=== PATIENT | female | born 1995 | race Caucasian/White ===

== ENCOUNTER 2022-05-15 11:27 | Inpatient (IN) | payer MEDICAID, OTHER ==
[2022-05-15] MEDS ORDERED: Acetaminophen 500 MG TAB PO PRN (18:40)
[2022-05-15] MEDS ORDERED: Promethazine HCl 25 MG/ML VIAL IM PRN (18:40)
[2022-05-15] MEDS ORDERED: Docusate 100 MG CAP PO PRN (18:40)
[2022-05-15] MEDS ORDERED: Zolpidem Tartrate 5 MG TAB PO PRN (18:40)
[2022-05-15] MEDS ORDERED: Misoprostol 200 MCG TAB PR PRN (18:40)
[2022-05-15] MEDS ORDERED: hydrALAZINE 20 MG/ML VIAL SLOW IVP PRN (18:40)
[2022-05-15] MEDS ORDERED: Misoprostol 100 MCG TAB VAG SCH (18:40)
[2022-05-15] MEDS ORDERED: Ibuprofen 800 MG TAB PO PRN (18:40)
[2022-05-15] MEDS ORDERED: Butorphanol Tartrate 1 MG/ML VIAL SLOW IVP PRN (18:40)
[2022-05-15] MEDS ORDERED: Lactated Ringer's 1,000 ML IV SCH (18:40)
[2022-05-15] MEDS ORDERED: HYDROcodone/Acetaminophen 5/325 mg Tablet PO PRN ×2 (18:40)
[2022-05-15] MEDS ORDERED: Lidocaine 1% (PF) 30 ML VIAL SC PRN (18:40)
[2022-05-15] MEDS ORDERED: NS w/ Oxytocin 30 units 500 ML IV SCH ×2 (18:40)
[2022-05-15] MEDS ORDERED: Diphenoxylate HCl/Atropine Tablet PO PRN ×2 (18:40)
[2022-05-15 18:41] VITALS: BMI 26.6
[2022-05-15 19:39] LABS: Hemoglobin 11.1 g/dL (12.0-15.5); Mean Corpuscular HGB CONC 35.1 g/dL (32.0-36.0); Mean Corpuscular Hemoglobin 30.8 pg (27.0-33.0); Mean Corpuscular Volume 87.8 fl (81.6-98.3); Mean Platelet Volume 12.2 fl (7.4-10.4); Platelet Count 209 10x3/uL (150-450); RBC Distribution Width 12.4 % (11.5-14.5); White Blood Cell (WBC) Count 11.2 10x3/uL (3.5-10.5)
[2022-05-15 20:12] LABS: HBSAg Index 0.25 S/CO (0-0.99); Hep B Surf Ag Non-Reactive S/CO (NonReactive); Syphilis Antibody Nonreactive (Nonreactive); Syphilis Antibody Index 0.04 S/CO (<1.00 Non-Reactive)
[2022-05-15 20:21] LABS: HIV (1/2) Antibody/Antigen Non-Reactive (NonReactive); HIV 1/2 INDEX 0.07 S/CO (<1.00)
[2022-05-15] MEDS: Ondansetron PF 4 MG/2 ML Vial IVP PRN (22:30)
[2022-05-15] MEDS ORDERED: Magnesium Sulfate 20 gm/500 ml 20 GM/500 ML BAG ONE (23:25)
[2022-05-16] MEDS: Ondansetron PF 4 MG/2 ML Vial IVP PRN ×3 (08:02→18:40)
[2022-05-16] MEDS ORDERED: Fentanyl 2 mcg/Bup 0.1% Cadd 100 ML ONE (09:57)
[2022-05-16] MEDS ORDERED: Promethazine HCl 25 MG/ML VIAL IM PRN (10:28)
[2022-05-16] MEDS ORDERED: diphenhydrAMINE 50 MG/ML VIAL IVP PRN (10:28)
[2022-05-16] MEDS ORDERED: ePHEDrine Sulfate 50 MG/10 ML VIAL SLOW IVP PRN (10:28)
[2022-05-16] MEDS ORDERED: Acetaminophen 325 MG TAB PO PRN (10:28)
[2022-05-16] MEDS ORDERED: Ondansetron PF 4 MG/2 ML Vial IVP PRN (10:28)
[2022-05-16] MEDS ORDERED: Naloxone HCl 0.4 mg/ml Vial IVP PRN ×2 (10:28)
[2022-05-16] MEDS ORDERED: Moisturizing Cream (Eucerin) 113 GM JAR TOP PRN (10:28)
[2022-05-16] MEDS ORDERED: Lactated Ringer's 500 ML IV PRN (10:28)
[2022-05-16] MEDS ORDERED: Communication Order-Pharmacy FS SCH (10:30)
[2022-05-16] MEDS ORDERED: Fentanyl 2 mcg/Bupivacaine 0.1% Cassette 100 ML EPIDURAL SCH (10:30)
[2022-05-16] MEDS ORDERED: Misoprostol 200 MCG TAB VAG PRN (10:41)
[2022-05-16] MEDS ORDERED: Boostrix 0.5 ML (Tdap) VIAL (>/=7 yrs of age) IM ONE (10:41)
[2022-05-16] MEDS ORDERED: Lanolin Ointment 7 GM TUBE TOP PRN (10:41)
[2022-05-16] MEDS ORDERED: Milk Of Magnesia 30 ML UDCUP PO PRN (10:41)
[2022-05-16] MEDS ORDERED: Preparation H Ointment 28 GM TUBE PR PRN (10:41)
[2022-05-16] MEDS ORDERED: Benzocaine-Menthol 82.5 ML CAN TOP PRN (10:41)
[2022-05-16] MEDS ORDERED: diphenhydrAMINE 25 MG CAP PO PRN (10:41)
[2022-05-16] MEDS ORDERED: Bisacodyl 10 MG SUPP PR PRN (10:41)
[2022-05-16] MEDS ORDERED: hydrALAZINE 20 MG/ML VIAL SLOW IVP PRN (10:41)
[2022-05-16] MEDS ORDERED: Witch Hazel-Glycerin 1 EACH JAR TOP PRN (10:42)
[2022-05-16] MEDS ORDERED: NS w/ Oxytocin 30 units 500 ML IV SCH (10:45)
[2022-05-16] MEDS: Ibuprofen 800 MG TAB PO SCH ×2 (13:51→21:24)
[2022-05-16] MEDS: Ferrous Sulfate 325 MG TAB PO SCH (18:05)
[2022-05-16] MEDS: Docusate 100 MG CAP PO SCH (21:24)
[2022-05-16 23:18] LABS: HIV (1/2) Antibody/Antigen Non-Reactive (NonReactive); HIV 1/2 INDEX 0.05 S/CO (<1.00)
[2022-05-17 05:12] LABS: Hemoglobin 11.2 g/dL (12.0-15.5); Mean Corpuscular HGB CONC 34.7 g/dL (32.0-36.0); Mean Corpuscular Hemoglobin 30.9 pg (27.0-33.0); Mean Platelet Volume 12.6 fl (7.4-10.4); Platelet Count 220 10x3/uL (150-450); RBC Distribution Width 12.6 % (11.5-14.5); Red Blood Cell (RBC) Count 3.63 10x6/uL (3.90-5.03); White Blood Cell (WBC) Count 13.4 10x3/uL (3.5-10.5)
[2022-05-17] MEDS: Ibuprofen 800 MG TAB PO SCH ×3 (05:30→21:50)
[2022-05-17] MEDS: Ferrous Sulfate 325 MG TAB PO SCH ×2 (08:38→15:48)
[2022-05-17] MEDS: Docusate 100 MG CAP PO SCH ×2 (08:39→21:50)
[2022-05-17] MEDS: Prenatal Vitamin 1 TAB PO SCH (08:39)
[2022-05-17] MEDS ORDERED: HYDROcodone/Acetaminophen 5/325 mg Tablet PO PRN ×2 (10:30)
[2022-05-17] MEDS ORDERED: Zolpidem Tartrate 5 MG TAB PO PRN (10:30)
[2022-05-17] MEDS ORDERED: Ondansetron ODT 4 MG TAB PO PRN (12:23)
[2022-05-18] MEDS: Ibuprofen 800 MG TAB PO SCH (06:19)
[2022-05-18 08:23] VITALS: BP 122/66; TEMP 97.8
[2022-05-18] MEDS: Ferrous Sulfate 325 MG TAB PO SCH (08:47)
[2022-05-18] MEDS: Docusate 100 MG CAP PO SCH (08:47)
[2022-05-18] MEDS: Prenatal Vitamin 1 TAB PO SCH (08:47)
== END 2022-05-18 14:35 | disposition home or self-care (01) | DRG 806 ==
LOC: CSHLD 17:08 → CSHPP 05-16 12:38
PROVIDERS: ADMIT Obstetrics & Gynecology; ATTEND Obstetrics & Gynecology
PROC: 3E0P7VZ Introduction of Hormone into Female Reproductive, Via Natural or Artificial Opening (ICD-10-PCS; 2022-05-15)
PROC: 10E0XZZ Delivery of Products of Conception, External Approach (ICD-10-PCS; principal; 2022-05-16)
PROC: 10907ZC Drainage of Amniotic Fluid, Therapeutic from Products of Conception, Via Natural or Artificial Opening (ICD-10-PCS; 2022-05-16)
DX: O98.52 Other viral diseases complicating childbirth (principal); O99.354 Diseases of the nervous system complicating childbirth; Z37.0 Single live birth; Z86.16 Personal history of COVID-19; B00.9 Herpesviral infection, unspecified; G43.909 Migraine, unspecified, not intractable, without status migrainosus; F41.9 Anxiety disorder, unspecified; F32.A Depression, unspecified; O99.344 Other mental disorders complicating childbirth; Z3A.39 39 weeks gestation of pregnancy
CPT/HCPCS: 36415; 85027; 86780; 86850; 86900; 86901; 87340; 87389; J0595; J2405; J2590; Q0162